=== PATIENT | male | born 1985 | race Caucasian/White ===

== ENCOUNTER 2018-02-03 16:41 | Emergency (ER) | payer BC ==
[~2018-02-03] VITALS: Ht 175.3 cm; Wt 72.6 kg
[2018-02-03 16:44] VITALS: Ht 175.3 cm; Wt 72.6 kg
[2018-02-03 17:36] LABS: CALCIUM 9.3 mg/dL (8.5-10.1); CARBON DIOXIDE 24.1 mmol/L (21-32); CHLORIDE SERUM 103 mmol/L (98-107); CREATININE SERUM 1.3 mg/dL (0.7-1.3); GFR1 > 60 mL/min; GLUCOSE SERUM 107 mg/dL (74-106); POTASSIUM SERUM 3.6 mmol/L (3.5-5.1); SODIUM SERUM 139 mmol/L (136-145)
[2018-02-03 17:42] LABS: ALBUMIN 4.4 g/dL (3.4-5.0); ALKALINE PHOSPHATASE 84 U/L (46-116); ALT/SGPT 27 U/L (16-63); AST/SGOT 16 U/L (15-37); BILIRUBIN TOTAL 0.3 mg/dL (0.20-1.00)
[2018-02-03 18:15] LABS: TOTAL PROTEIN, SERUM 8.5 g/dL (6.4-8.2)
[2018-02-03 18:47] LABS: AMPHETAMINE QUAL UR NONE DETECTED (See below)
[2018-02-03 19:18] VITALS: BP 144/80
== END 2018-02-03 19:18 | disposition home or self-care (01) ==
LOC: ED 16:41
PROVIDERS: Specialist
DX: G40.909 Epilepsy, unspecified, not intractable, without status epilepticus (principal)
CPT/HCPCS: G0480